=== PATIENT | male | born 1975 | race Caucasian/White ===

== ENCOUNTER → 2025-01-09 11:54 | Outpatient (REF) | payer OTHER, SELFPAY ==
--- NOTE | 2025-01-09 14:16 | CARDSERVLU ---
Echocardiogram with Lumason completed after protocol screening completed. Allergies verified.
Patent IV site: _Left hand____
IV site flushed with 0.9% NaCl pre and post administration.
Diluted bolus method utilized to enhance visualization of ventricular morillo.
Total volume given: _6.0___ mL
Patient tolerated all procedures well without complications.
== END ==
LOC: RCS 11:54
PROVIDERS: ATTENDING PHYSICIAN Internal Medicine; FAMILY PHYSICIAN Registered Nurse
DX: I25.10 Atherosclerotic heart disease of native coronary artery without angina pectoris (principal); I10 Essential (primary) hypertension; E78.00 Pure hypercholesterolemia, unspecified
CPT/HCPCS: 93306; Q9950

== ENCOUNTER → 2025-02-04 07:32 | Outpatient (REF) | payer OTHER, SELFPAY | LOC: HWRCS 07:32 | PROVIDERS: ATTENDING PHYSICIAN Internal Medicine; FAMILY PHYSICIAN Registered Nurse | DX: I25.10 Atherosclerotic heart disease of native coronary artery without angina pectoris (principal); I11.9 Hypertensive heart disease without heart failure; E78.00 Pure hypercholesterolemia, unspecified; E78.1 Pure hyperglyceridemia | CPT/HCPCS: 78452; 93017; A9500; J2785 ==

== ENCOUNTER 2025-03-10 08:54 | Emergency (ER) | payer OTHER, SELFPAY ==
[2025-03-10 08:59] VITALS: BP 179/99
--- NOTE | 2025-03-10 09:09 | ED.GENMED ---
History of Present Illness
General
Chief Complaint: Male Genito-Urinary Symptoms
Time Seen by Provider: 03/10/25 09:09
History of Present Illness
History of Present Illness:
FOCUSED PAST MEDICAL HISTORY
- CAD, IDDM
REVIEW OF OLD RECORDS
- Patient went to the OR for diabetic foot infection 2022
CHIEF COMPLAINT(S)
Scrotal swelling and blurry vision.
HISTORY OF PRESENT ILLNESS
The patient is a 49-year-old male with a history of diabetes mellitus who presents with scrotal swelling and blurry vision. Symptoms started just after Dolly with an initial onset of fever. The patient notes that the fever developed
evening. By bedtime, he experienced blurry vision and began to retain fluid, particularly in his extremities, noticing swelling in his ankles. Over the course of the illness, the fluid retention shifted, and as the fever resolved on Monday, the
scrotal region remained notably swollen and the swelling, described to be the size of greater than a softball, has persisted.
The patient reported his blood glucose levels became erratic during this period, rising when the fever started and markedly dropping when it resolved. Upon presentation, his blood glucose stabilized at 113 mg/dL in the morning. The swelling in his
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 The patient denies any previous history of hydrocele or varicocele.
Upon examination, it was noted that the patients scrotal region was enlarged, though he did not experience pain, merely discomfort due to its size. The acute swelling and lack of prior history led the team to decide on further investigations
including blood work, given recent erratic blood sugar levels and reported discomfort.
ADDITIONAL HISTORY OBTAINED FROM SOURCES OTHER THAN THE PATIENT
Per the patients family, the fever began on , and they confirm the patients history of diabetes.
SOCIAL DETERMINANTS AFFECTING HEALTH
The patient reports that decreased appetite during fever episodes has impacted his usual dietary intake, affecting his glucose control and medication routine, such as taking potassium supplements as needed.
PHYSICAL EXAM
General: Alert, no acute distress.
Skin: Warm, dry.
Head: Normocephalic, atraumatic.
Neck: Supple, trachea midline.
Eye Ears, Nose, Mouth, and Throat: Oral mucosa moist.
Cardiovascular: Normal peripheral perfusion, No edema.
Respiratory: Respirations are non-labored.
: Greater than softball size scrotal edema, minimal if any testicular tenderness could not easily palpate epididymis bilaterally
Gastrointestinal: Abdomen nondistended.
Back: Normal range of motion, Normal alignment.
Musculoskeletal: Normal ROM, normal strength. Trace lower extremity edema
Neurological: Alert and oriented to person, place, time, and situation, No focal neurological deficit observed.
Psychiatric: Cooperative, appropriate mood & affect.
PROBLEM LIST
Acute:
- Scrotal swelling
Chronic:
- Diabetes Mellitus
PLAN
1. Conduct further blood tests to confirm and evaluate potassium, calcium, albumin, and bicarbonate levels due to concerns of hypokalemia and other electrolyte imbalances indicated by initial low results.
2. Perform ultrasound imaging to further examine scrotal enlargement and rule out other testicular pathologies.
3. Monitor glucose levels closely and consider adjustments in diabetes management during current episode.
4. If confirmed electrolyte imbalance persists, consider hospital admission for more intensive management and to prevent complications.
DIFFERENTIAL DIAGNOSIS
The Differential Diagnosis includes, in no particular order and is not limited to:
1. Diabetic Ketoacidosis
2. Scrotal Edema secondary to systemic illness
3. Epididymitis
4. Orchitis
5. Heart Failure causing Fluid Retention
6. Nephrotic Syndrome
7. Testicular Torsion
8. Hypoalbuminemia causing Edema
9. Varicocele
10. Hydrocele
RADIOLOGY
- Scrotal ultrasound suggest orchitis
LABS
- Greater than 100 white cells per high-powered field on urinalysis, white count normal
UPDATE
- Discussed findings with Dr. Holguin
- She recommend scrotal support
- There is no sign of Zachary's skin changes on examination
- Gave Rocephin and will start Cipro
- Patient is already on 2 diuretics
Past History
Past History
ED Past Medical History: CAD, HTN, Hypercholesterolemia, IDDM, MS and Other (Renal calculus, UTI, )
ED Past Surgical History: Cardiac (stent '19) and Orthopedic (Left shoulder reconstruction)
Social History
Tobacco: Non-smoker
Alcohol: None
Drug: None
Personal:
Living: with family
Employment: Employed
Family History
Family History: Diabetes
Phy Exam
Physical Exam
Physical Exam:
See HPI
Course
Orders/Labs/Results
Orders:
Orders
03/10/25 09:21
US Scrotum Urgent
Comment:
Reason For Exam: swelling severe
03/10/25 09:35
Complete Blood Count/With Diff Urgent
Comprehensive Metabolic Panel Urgent
Urinalysis Reflex To Culture Urgent
Date Specimen was Collected: 03/10/25
Time Specimen was Collected: 09:24
Urine Microscopic Reflex Cult Urgent
Urine Culture Urgent
LUANN Source: U
Specimen Description:
Date Specimen was Collected: 03/10/25
Time Specimen was Collected: 09:24
03/10/25 11:20
CefTRIAXone [Rocephin] 1,000 mg IV NOW STA
Abnormal Lab Results
03/10/25
09:35
Abs Immat Gran (auto) 0.1 H 10^3/uL
(0-0.05)
Absolute Neuts (auto) 8.3 H 10^3/uL
(1.4-6.5)
Absolute Lymphs (auto) 0.9 L 10^3/uL
(1.2-3.4)
Immature Gran % 0.7 H %
(0-0.5)
Neutrophils % 82.3 H %
(42.2-75.2)
Lymphocytes % 9.3 L %
(20.5-51.1)
Sodium 134 L mmol/L
(135-145)
Creatinine 0.6 L mg/dL
(0.7-1.3)
Glucose 178 H mg/dl
(70-99)
Albumin 3.4 L g/dl
(3.5-5.0)
Urine Ketones 2+ A
(Negative)
Ur Occult Blood Reflex 2+ A
(Negative)
Leukocyte Esterase Rfl 3+ A
(Negative)
Urine RBC 3-6 A /HPF
(0-2)
Urine WBC (Reflex) >100 A /HPF
(0-5)
Urine Bacteria (Reflex) Many A
(Negative)
Urine Glucose 4+ A
(Negative)
Urine Albumin (Reflex) 1+ A
(Neg - Trace)
03/10/25 09:35
03/10/25 09:35
Vital Signs
Initial and Last Documented VS:
Initial Vital Signs
Temp Pulse Resp BP Pulse Ox
36.7 C 118 20 179/99 98
03/10/25 08:59 03/10/25 08:59 03/10/25 08:59 03/10/25 08:59 03/10/25 08:59
Last Documented Vital Signs
Temp Pulse Resp BP Pulse Ox
36.7 C 118 20 179/99 98
03/10/25 08:59 03/10/25 08:59 03/10/25 08:59 03/10/25 08:59 03/10/25 09:09
*Pulse Oximetry
SaO2: 98
Oxygen Mode of Delivery: Room air
Patient hypoxic: no
*Critical Care Note
Total Time (30-74mins, 75-104mins- exclusive of procedures): Not Applicable
ED Attending Note
-
Portions of this chart may have been created with voice recognition software.� Occasional wrong word or��sound alike� substitutions may have occurred due to the inherent limitations of voice recognition software.
Discharge Plan
Departure
Patient Disposition: Home (Routine Discharge)
Date of Disposition: 03/10/25
Time of Disposition: :29
Patient with high blood pressure during this ER visit?: Yes
Discharge Problem:
Orchitis
Instructions: Epididymitis and orchitis, BLOOD PRESSURE
Prescriptions:
New
ciprofloxacin HCl 500 mg tablet
500 mg PO BID Qty: 14 0RF
No Action
furosemide 40 MG tablet
40 mg PO DAILY
ezetimibe 10 MG tablet
10 mg PO DAILY
atorvastatin 80 MG tablet
80 mg PO DAILY
fenofibrate nanocrystallized 48 MG tablet
48 mg PO DAILY
aspirin 81 mg Tablet,Delayed Release (Dr/Ec)
81 mg PO DAILY
Jardiance 10 mg tablet
10 mg PO DAILY
metoprolol succinate 200 mg tablet extended release 24 hr
200 mg PO DAILY
insulin lispro [Humalog KwikPen Insulin] 100 unit/mL insulin pen
37 unit SC AC
acetaminophen [Tylenol Ex Str Arthritis Pain] 500 mg Tablet
1,000 mg PO TIDPRN PRN (Reason: mild pain)
spironolactone 25 mg Tablet
25 mg PO DAILY
lisinopril 5 mg Tablet
10 mg PO DAILY
insulin lispro [Humalog U-100 Insulin] 100 unit/mL Solution
1 sliding scale dose SC AC
Rx Instructions:
IF <80=0 UNITS, 80-100=10, 101-150=12, 151-200=13, 201-250=15, 251-300=18, 301-400=24 - MKO 03/10/25
Coricidin HBP Cold-Multi Sympt 6.25-15-325 mg/15 mL Liquid
30 ml PO DAILYPRN PRN (Reason: cough)
insulin glargine U-300 conc [Toujeo Max U-300 SoloStar] 300 unit/mL (3 mL) Insulin Pen
35 unit SC HS
Referrals:
Maeve Holguin MD [Active, Urology]
August Meadows CRNP [Family Provider, Internal Medicine]
Activity Restrictions/Additional Instructions:
White blood cell count is normal at 10.1, high number of white cells in the urinalysis greater than 100. We gave Rocephin and I am sending a prescription for Cipro to your pharmacy. Follow-up Dr. Holguin. She agrees that you should also have
scrotal support by either using a jockstrap or tighter fitting underwear.
Interventions
Interventions:
*Neglect/Abuse Screening Last Done: 03/10/25 08:59
*Risk Screen - Suicide (C-SSRS) Last Done: 03/10/25 08:59
*Nursing Disposition Last Done: 03/10/25 12:36
ED-Male Genitourinary Assessment Last Done: 03/10/25 09:21
Discharge Date and Time
Print Language: LATVIAN
[2025-03-10 09:47] LABS: Hematocrit 39.1 % (39.0-52.0); Hemoglobin 13.1 g/dL (13.0-18.0); Mean Corp Hgb Conc. 33.5 g/dL (33.0-37.0); Mean Corpuscular Volume 83.2 fL (80.0-94.0); Nucleated Red Blood Cells % 0 % (-); Platelet Count 320 10^3/uL (130-400); Red Cell Dist. Width 12.1 % (11.5-14.5)
[2025-03-10 10:09] LABS: ALT (SGPT) 21 U/L (0-50); AST (SGOT) 17 U/L (17-59); Albumin 3.4 g/dl (3.5-5.0); Alkaline Phosphatase 115 U/L (38-126); Blood Urea Nitrogen 15 mg/dl (9-20); Calcium 8.6 mg/dl (8.4-10.2); Carbon Dioxide 24 mmol/L (22-30); Chloride 101 mmol/L (98-107); Glucose 178 mg/dl (70-99); Potassium 3.5 mmol/L (3.5-5.1); Sodium 134 mmol/L (135-145); Total Protein 6.3 g/dl (6.3-8.2); eGFR > 60.00
[2025-03-10 10:18] LABS: Urine Character Slightly Cloudy (Clear)
[2025-03-10 10:34] LABS: Urine Squamous Cell 16-20 /LPF (Few); Urine White Cell >100 /HPF (0-5)
[2025-03-10] MEDS: ROCEPHIN 1000 MG IV (12:03)
[2025-03-10 12:50] VITALS: BP 135/73
== END 2025-03-10 12:57 | disposition home or self-care (01) ==
LOC: EMR 08:54
PROVIDERS: EMERGENCY PHYSICIAN Emergency Medicine; FAMILY PHYSICIAN Registered Nurse
DX: N45.2 Orchitis (principal); H53.8 Other visual disturbances; E11.9 Type 2 diabetes mellitus without complications; I25.10 Atherosclerotic heart disease of native coronary artery without angina pectoris; E78.00 Pure hypercholesterolemia, unspecified; I10 Essential (primary) hypertension; I25.2 Old myocardial infarction; Z79.4 Long term (current) use of insulin; Z95.5 Presence of coronary angioplasty implant and graft; Z87.442 Personal history of urinary calculi; Z87.440 Personal history of urinary (tract) infections; Z88.8 Allergy status to other drugs, medicaments and biological substances
CPT/HCPCS: 99284; 96374; 76870; 80053; 81003; 81015; 85025; 87086; 93976